=== PATIENT | female | born 1985 | race American Indian/Alaskan Native ===

== ENCOUNTER 2018-06-02 10:41 | Day surgery (SDC) | payer OTHER | END 2018-06-02 19:30 | disposition home or self-care (01) | LOC: CIR.AMB 10:41 → ADM 06-10 15:30 | DX: O02.1 Missed abortion (principal); Z3A.08 8 weeks gestation of pregnancy ==

== ENCOUNTER 2019-06-17 17:29 | Outpatient (CLI) | payer OTHER | END 2019-06-17 17:39 | disposition home or self-care (01) | LOC: NST 17:29 | DX: Z34.83 Encounter for supervision of other normal pregnancy, third trimester (principal) ==

== ENCOUNTER 2019-07-08 10:52 | Inpatient (IN) | payer OTHER ==
[~2019-07-08] VITALS: Ht 157.5 cm; Wt 72.6 kg
[2019-07-20] MEDS ORDERED: PRENATAL PLUS1 EAC2 PO (08:18)
[2019-07-20] MEDS ORDERED: VALTREX1000 MG PO (08:19)
== END 2019-07-23 11:35 | disposition home or self-care (01) | DRG 788 ==
LOC: O/R 07-20 07:53 → OB/GYN 07-20 07:53
PROVIDERS: ADMIT Obstetrics & Gynecology
PROC: 4A1HXFZ Monitoring of Products of Conception, Cardiac Rhythm, External Approach (ICD-10-PCS; 2019-07-20)
PROC: 10D00Z1 Extraction of Products of Conception, Low, Open Approach (ICD-10-PCS; principal; 2019-07-20 10:00)
DX: O64.1XX0 Obstructed labor due to breech presentation, not applicable or unspecified (principal); Z3A.39 39 weeks gestation of pregnancy; Z37.0 Single live birth